=== PATIENT | male | born 1980 | race Asian ===

== ENCOUNTER 2025-02-13 18:51 | Emergency (ER) | payer MEDICAID, OTHER ==
[~2025-02-13] VITALS: Ht 170.2 cm; Wt 63.6 kg
[2025-02-13 19:26] LABS: PLATELET COUNT (AUTO) 226 K/uL (150-450); RED BLOOD CELL COUNT(AUTO) 5.49 MIL/uL (4.50-5.90); RED CELL DISTRIBUTION WIDTH 12.5 % (11.5-14.5); WHITE BLOOD COUNT (AUTO) 6.0 K/uL (4.5-11.0)
[2025-02-13 19:29] LABS: CALCIUM, TOTAL 8.7 mg/dL (8.8-10.5); CREATININE 0.69 mg/dL (0.60-1.30); GLOMERULAR FILTR. RATE CALC > 60 mL/min (>60); GLUCOSE,RANDOM 116 mg/dL (70-110); SODIUM SERUM 137 mmol/L (136-145); UREA NITROGEN, BLOOD 16 mg/dL (7-18)
[2025-02-13 20:12] LABS: APPEARANCE,URINE CLEAR (CLEAR); GLUCOSE, URINE (UA) NEGATIVE (NEGATIVE); LEUKOCYTE ESTERASE ,URINE NEGATIVE (NEGATIVE); NITRATE,URINE NEGATIVE (NEGATIVE); OCCULT BLOOD,URINE NEGATIVE (NEGATIVE); SPECIFIC GRAVITIY, URINE 1.030 (1.003-1.030)
[2025-02-13 22:39] VITALS: BP 119/69; PULSE 72; RESP 18; TEMP 98.1; O2SAT 99
== END 2025-02-13 23:06 | disposition home or self-care (01) ==
LOC: EMS 18:51
DX: R10.32 Left lower quadrant pain (principal)
CPT/HCPCS: 74176; 80048; 81003; 83690; 85025; 99284